=== PATIENT | female | born 1995 | race Caucasian/White ===

== ENCOUNTER 2023-08-25 20:54 | Emergency (ER) | payer OTHER ==
--- NOTE | 2023-08-25 21:28 | ED ---
Extremity Problem HPI - General Source: patient, RN notes reviewed Mode of arrival: ambulatory Limitations: no limitations - History of Present Illness MD Complaint: extremity pain <Brenda Morataya - Last Filed: 08/25/23 21:24> <Rochelle Francis P - Last Filed: 08/25/23 23:10> - General Chief complaint: Extremity Injury, Upper Stated complaint: Attacked by dog, pain in shoulders Time Seen by Provider: 08/25/23 21:24 - History of Present Illness Initial comments: This is a 27 year old female who presents to the emergency department for a dog attack. She was attacked by a [place] earlier today. She was walking her dog, when another dog came out of no where and started attacking them. She has several abrasions to her knees. Denies being bitten. States that her whole body is now hurting, particularly the right arm. She is unable to lift or move her right arm. (Brenda Morataya) - Related Data Previous Rx's Medication Instructions Recorded Ibuprofen [Motrin] 600 mg PO Q6HR PRN #30 tab 08/25/23 Orphenadrine [Norflex] 100 mg PO Q12H #12 tab 08/25/23 Allergies Allergy/AdvReac Type Severity Reaction Status Date / Time latex Allergy Unknown Verified 08/25/23 21:29 Review of Systems ROS Other: All systems not noted in ROS Statement are negative. <Brenda Morataya - Last Filed: 08/25/23 21:24> ROS Other: All systems not noted in ROS Statement are negative. <Rochelle Francis P - Last Filed: 08/25/23 23:10> ROS Statement: Those systems with pertinent positive or pertinent negative responses have been documented in the HPI. General Exam <Brenda Morataya - Last Filed: 08/25/23 21:24> - General Exam Comments Initial Comments: Visual Physical Exam Vital signs reviewed General: Well-appearing, nontoxic, no acute distress. Head: Normocephalic, atraumatic Eyes: PERRLA, EOMI ENT: Airway patent Chest: Nonlabored breathing Skin: No visual rash, normal skin tone Neuro: Alert and oriented 3 Musculoskeletal: No gross abnormalities I performed the QuickNote portion of this chart. Signed Brenda Morataya PA-C. (Brenda Morataya) Course Vital Signs 08/25/23 21:25 Temperature 98.4 F Pulse Rate 68 Respiratory 18 Rate Blood Pressure 150/95 O2 Sat by Pulse 98 Oximetry Medical Decision Making <Rochelle Francis P - Last Filed: 08/25/23 23:10> - Medical Decision Making Was pt. sent in by a medical professional or institution (, [facility], [facility], urgent care, hospital, or snf...) When possible be specific @ -No Did you speak to anyone other than the patient for history (EMS, parent, family, police, friend...)? What history was obtained from this source @ -No Did you review nursing and triage notes (agree or disagree)? Why? @ -I reviewed and agree with nursing and triage notes Were old charts reviewed (outside hosp., previous admission, EMS record, old EKG, old radiological studies, urgent care reports/EKG's, snf records)? Report findings @ -No old charts were reviewed Differential Diagnosis (chest pain, altered mental status, abdominal pain women, abdominal pain men, vaginal bleeding, weakness, fever, dyspnea, syncope, headache, dizziness, GI bleed, back pain, seizure, CVA, palpatations, mental health, musculoskeletal)? @ -not applicable EKG interpreted by me (3pts min.). @ -As above X-rays interpreted by me (1pt min.). @ X-rays of cervical spine, shoulder, forearm, hand and hip were reviewed and I see no obvious fractures or dislocations in any of these x-rays CT interpreted by me (1pt min.). @ -None done U/S interpreted by me (1pt. min.). @ -None done What testing was considered but not performed or refused? (CT, X-rays, U/S, labs)? Why? @ -None What meds were considered but not given or refused? Why? @ -None Did you discuss the management of the patient with other professionals (professionals i.e. [facility] Brown, [facility] [facility], lab, RT, psych nurse, 7th grade social studies teacher, damascener, teacher, operational intelligence officer, nurse case management)? Give summary @ -No Was smoking cessation discussed for >3mins.? @ -No Was critical care preformed (if so, how long)? @ -No Were there social determinants of health that impacted care today? How? (Homelessness, low income, unemployed, alcoholism, drug addiction, transportation, low edu. Level, literacy, decrease access to med. care, alf, rehab)? @ -No Was there de-escalation of care discussed even if they declined (Discuss DNR or withdrawal of care, Hospice)? DNR status @ -No What co-morbidities impacted this encounter? (DM, HTN, Smoking, COPD, CAD, Cancer, CVA, ARF, Chemo, Hep., AIDS, mental health diagnosis, sleep apnea, morbid obesity)? @ -None Was patient admitted / discharged? Hospital course, mention meds given and route, prescriptions, significant lab abnormalities, going to OR and other pertinent info. @ -Discharge Patient was seen and evaluated, history was obtained from the patient, x-rays were obtained there is no fractures or dislocations noted, abrasions were cleaned and dressed. Patient's tetanus is up-to-date in the past year. Patient treated with Toradol and Norflex. She will be discharged home with Motrin and Norflex. Undiagnosed new problem with uncertain prognosis? @ -No Drug Therapy requiring intensive monitoring for toxicity (Heparin, Nitro, Insulin, Cardizem)? @ -No Were any procedures done? @ -No Diagnosis/symptom? @ Contusions and muscle spasm Acute, or Chronic, or Acute on Chronic? @ -default Uncomplicated (without systemic symptoms) or Complicated (systemic symptoms)? @ -default Side effects of treatment? @ -No Exacerbation, Progression, or Severe Exacerbation? @ -No Poses a threat to life or bodily function? How? (Chest pain, [place], [place], pneumonia, PE, COPD, DKA, ARF, appy, cholecystitis, CVA, Diverticulitis, Homicidal, Suicidal, threat to staff... and all critical care pts) @ -No (Rochelle Francis) Disposition <Brenda Morataya - Last Filed: 08/25/23 21:24> Is patient prescribed a controlled substance at d/c from ED?: No <Rochelle Francis - Last Filed: 08/25/23 23:10> Clinical Impression: Contusion Disposition: HOME SELF-CARE Condition: Stable Prescriptions: Ibuprofen [Motrin] 600 mg PO Q6HR PRN #30 tab PRN Reason: Pain Orphenadrine [Norflex] 100 mg PO Q12H #12 tab Referrals: Chris Onofre MD [Primary Care Provider] - 1-2 days
[2023-08-25 21:36] VITALS: PULSE 68; RESP 18; TEMP 98.4
--- NOTE | 2023-08-25 22:11 | XR ---
EXAMINATION TYPE: XR cervical spine comp DATE OF EXAM: 08/25/2023 10:07 PM INDICATION: Patient age:Female; 27 years old; Reason for study: Injury; [facility]. COMPARISON: None TECHNIQUE: The cervical spine was imaged in 4 projections. Frontal, lateral, odontoid and bilateral o blique. FINDINGS: The osseous structures show normal alignment without evidence of an acute fracture. The intervertebra l disk spaces are preserved. Pedicles are intact. Soft tissues are within normal limits. The odonto id appears intact. IMPRESSION: No fracture or dislocation.
--- NOTE | 2023-08-25 22:12 | XR ---
EXAMINATION TYPE: XR Hip Limited RT DATE OF EXAM: 08/25/2023 10:07 PM INDICATION: Patient age:Female; 27 years old; Reason for study: PAIN; [facility]. COMPARISON: None. TECHNIQUE: The eighth hip was examined in the frontal and lateral projections . FINDINGS: No evidence of any acute osseous pathology, joint dislocation, or soft tissue swelling. IMPRESSION: No acute osseous pathology.
--- NOTE | 2023-08-25 22:13 | XR ---
EXAMINATION TYPE: XR forearm RT DATE OF EXAM: 08/25/2023 10:07 PM INDICATION: Patient age:Female; 27 years old; Reason for study: Injury; [facility]. COMPARISON: None TECHNIQUE: The right forearm was examined in AP and lateral projections. FINDINGS: No acute osseous pathology, soft tissue swelling or joint dislocations are seen. IMPRESSION: No evidence of acute fracture.
--- NOTE | 2023-08-25 22:13 | XR ---
EXAMINATION TYPE: XR shoulder complete RT DATE OF EXAM: 08/25/2023 10:07 PM INDICATION: Patient age:Female; 27 years old; Reason for study: Injury; COMPARISON: None TECHNIQUE: The right shoulder was examined in AP, internally rotated and scapular Y projections. . FINDINGS: No evidence of acute osseous pathology, joint dislocation, or soft tissue swelling. The remaining por tions of the visualized chest are unremarkable. IMPRESSION: No acute osseous pathology.
--- NOTE | 2023-08-25 22:14 | XR ---
EXAMINATION TYPE: XR hand complete RT DATE OF EXAM: 08/25/2023 10:07 PM INDICATION: Patient age:Female; 27 years old; Reason for study: Injury; [facility]. COMPARISON: Right forearm radiograph the same date. TECHNIQUE: Frontal, lateral and oblique views of the right hand were obtained. FINDINGS: Normal alignment of the visualized joints. No acute osseous pathology is identified. No e vidence of soft tissue swelling. IMPRESSION: No acute osseous pathology.
[2023-08-25] MEDS ORDERED: KETOROLAC 15 MG/ML 1 ML VIAL IM STA (23:03)
[2023-08-25] MEDS ORDERED: ORPHENADRINE 30 MG/ML 2 ML VIAL IM STA (23:03)
[2023-08-25 23:59] VITALS: BP 148/88
== END 2023-08-25 23:54 | disposition home or self-care (01) ==
LOC: EC 20:54
DX: S80.02XA Contusion of left knee, initial encounter (principal); S80.01XA Contusion of right knee, initial encounter; M62.838 Other muscle spasm; M25.511 Pain in right shoulder; Z91.040 Latex allergy status; W54.1XXA Struck by dog, initial encounter; Y93.K1 Activity, walking an animal
CPT/HCPCS: 72050; 73501; 73030; 73090; 73130; 99283; 96372 ×2; J2360; J1885